=== PATIENT | male | born 1975 | race Caucasian/White ===

== ENCOUNTER 2021-11-28 12:15 | Inpatient (IN) | payer MEDICARE, MEDICAID ==
[~2021-11-28] VITALS: Ht 177.8 cm; Wt 123.1 kg
[2021-11-28 17:57] VITALS: BP 153/88
[2021-11-28] MEDS ORDERED: INFLUENZA VIRUS VACCINE QVS 2021-22 (6MO+)/PF 60 MCG/0.5 ML SYRINGE IM. ONE (20:15)
[2021-11-28] MEDS ORDERED: PNEUMOCOCCAL VACCINE POLYVALENT 0.5 ML VIAL [PPSV23] IM. ONE (20:15)
[2021-11-28] MEDS: HALOPERIDOL 5 MG TABLET PO PRN (20:16)
[2021-11-28] MEDS: ZOLPIDEM TARTRATE 10 MG TABLET PO PRN (20:16)
[2021-11-28] MEDS: LORazepam 2 MG TABLET PO PRN (20:16)
[2021-11-29 04:50] VITALS: BP 151/95
[2021-11-29 08:09] VITALS: BP 150/74
[2021-11-29] MEDS: LORazepam 2 MG TABLET PO PRN ×2 (08:47→16:17)
[2021-11-29 14:58] LABS: APPEARANCE,URINE CLEAR (CLEAR); BILIRUBIN,URINE NEGATIVE (NEGATIVE); GLUCOSE, URINE (UA) NEGATIVE (NEGATIVE); KETONES,URINE NEGATIVE (NEGATIVE); LEUKOCYTE ESTERASE ,URINE NEGATIVE (NEGATIVE); NITRATE,URINE NEGATIVE (NEGATIVE); OCCULT BLOOD,URINE NEGATIVE (NEGATIVE); PROTEIN,URINE NEGATIVE (NEGATIVE)
[2021-11-29 15:02] LABS: AMPHET/METH SCREEN,URINE NEGATIVE (NEGATIVE); BARBITURATE SCREEN, URINE NEGATIVE (NEGATIVE); BENZODIAZEPINES SCREEN,URINE NEGATIVE (NEGATIVE); CANNABINOID SCREEN,URINE NEGATIVE (NEGATIVE); COCAINE SCREEN,URINE NEGATIVE (NEGATIVE); METHADONE SCREEN, URINE NEGATIVE (NEGATIVE); OPIATE SCREEN,URINE NEGATIVE (NEGATIVE)
[2021-11-29 15:06] LABS: PHENCYCLIDINE SCREEN,URINE NEGATIVE (NEGATIVE)
[2021-11-29 16:00] VITALS: BP 140/88
[2021-11-29] MEDS ORDERED: IBUPROFEN 400 MG TABLET PO PRN (16:30)
[2021-11-29] MEDS ORDERED: ONDANSETRON HCL 4 MG TABLET PO PRN (16:30)
[2021-11-29] MEDS ORDERED: MAGNESIUM HYDROXIDE SUSPENSION 30 ML UDCUP PO PRN (16:30)
[2021-11-29] MEDS ORDERED: DOCUSATE SODIUM 100 MG CAPSULE PO PRN (16:30)
[2021-11-29] MEDS ORDERED: PETROLATUM,WHITE 28 GM JELLY TP PRN (16:30)
[2021-11-29] MEDS ORDERED: ACETAMINOPHEN 325 MG TABLET PO PRN (16:30)
[2021-11-29] MEDS ORDERED: GuaiFENesin/D-METHORPHAN [SUGAR-FREE] 200-20MG/10 ML SYRUP UDCUP PO PRN (16:30)
[2021-11-29] MEDS ORDERED: LOPERAMIDE HCL 2 MG CAPSULE PO PRN (16:30)
[2021-11-29] MEDS ORDERED: ALBUTEROL SULFATE HFA 90 MCG/PUFF 8 GM INHALER IH PRN (16:30)
[2021-11-29] MEDS ORDERED: CloNIDine HCL 0.1 MG TABLET PO PRN (16:30)
[2021-11-29] MEDS ORDERED: NICOTINE 14 MG/24 HOUR PATCH TD PRN (16:30)
[2021-11-29] MEDS ORDERED: MAG HYDROX/AL HYDROX/SIMETH ES 30 ML SUSPENSION UDCUP PO PRN (16:30)
[2021-11-29] MEDS: QUEtiapine FUMARATE 200 MG TABLET PO SCH (20:02)
[2021-11-29] MEDS: ZOLPIDEM TARTRATE 10 MG TABLET PO PRN (20:02)
[2021-11-30 00:34] VITALS: BP 136/81
[2021-11-30] MEDS: LORazepam 2 MG TABLET PO PRN ×3 (08:19→20:09)
[2021-11-30 08:41] VITALS: BP 130/76
[2021-11-30 16:22] VITALS: BP 141/83
[2021-11-30] MEDS: QUEtiapine FUMARATE 200 MG TABLET PO SCH (20:09)
[2021-11-30] MEDS: ZOLPIDEM TARTRATE 10 MG TABLET PO PRN (20:09)
[2021-12-01 03:53] VITALS: BP 118/72
[2021-12-01 09:18] VITALS: BP 122/70
[2021-12-01] MEDS: HALOPERIDOL 5 MG TABLET PO PRN (10:21)
[2021-12-01] MEDS: LORazepam 2 MG TABLET PO PRN ×3 (10:21→20:09)
[2021-12-01 16:04] VITALS: BP 170/92
[2021-12-01] MEDS: QUEtiapine FUMARATE 200 MG TABLET PO SCH (20:09)
[2021-12-01] MEDS: ZOLPIDEM TARTRATE 10 MG TABLET PO PRN (20:09)
[2021-12-02 05:28] VITALS: BP 137/75
[2021-12-02] MEDS: LORazepam 2 MG TABLET PO PRN ×4 (08:08→20:39)
[2021-12-02] MEDS: HALOPERIDOL 5 MG TABLET PO PRN ×2 (08:08→12:12)
[2021-12-02 08:15] VITALS: BP 130/78
[2021-12-02 16:02] VITALS: BP 140/81
[2021-12-02] MEDS: QUEtiapine FUMARATE 200 MG TABLET PO SCH (20:39)
[2021-12-02] MEDS: ZOLPIDEM TARTRATE 10 MG TABLET PO PRN (20:39)
[2021-12-03 01:04] VITALS: BP 117/76
[2021-12-03] MEDS: LORazepam 2 MG TABLET PO PRN ×3 (08:00→16:06)
[2021-12-03 08:11] VITALS: BP 117/79
[2021-12-03 15:06] LABS: GLUCOMETER DEV NAME(LOC) POC.BV
[2021-12-03 16:05] VITALS: BP 133/81
[2021-12-03] MEDS: QUEtiapine FUMARATE 200 MG TABLET PO SCH (20:16)
[2021-12-03] MEDS: ZOLPIDEM TARTRATE 10 MG TABLET PO PRN (20:16)
[2021-12-04 00:11] VITALS: BP 124/68
[2021-12-04 01:34] VITALS: BP 120/70
[2021-12-04] MEDS: LORazepam 2 MG TABLET PO PRN ×4 (07:52→20:49)
[2021-12-04 08:15] VITALS: BP 150/96
[2021-12-04 16:02] VITALS: BP 140/83
[2021-12-04] MEDS: HALOPERIDOL 5 MG TABLET PO PRN (16:31)
[2021-12-04] MEDS: QUEtiapine FUMARATE 200 MG TABLET PO SCH (20:49)
[2021-12-04] MEDS: ZOLPIDEM TARTRATE 10 MG TABLET PO PRN (20:50)
[2021-12-05 06:20] VITALS: BP 122/80
[2021-12-05 08:06] LABS: COVID AG,FIA SOURCE NASOPHARYNGEAL
[2021-12-05 08:13] VITALS: BP 117/64
[2021-12-05] MEDS: LORazepam 2 MG TABLET PO PRN ×3 (08:38→20:37)
[2021-12-05 16:04] VITALS: BP 133/83
[2021-12-05] MEDS: QUEtiapine FUMARATE 200 MG TABLET PO SCH (20:37)
[2021-12-05] MEDS: ZOLPIDEM TARTRATE 10 MG TABLET PO PRN (20:37)
[2021-12-05] MEDS: HALOPERIDOL 5 MG TABLET PO PRN (23:15)
[2021-12-06 01:39] VITALS: BP 138/83
[2021-12-06 08:10] VITALS: BP 112/60
[2021-12-06] MEDS: ESCITALOPRAM OXALATE 10 MG TABLET PO SCH (09:11)
[2021-12-06 12:01] LABS: GLUCOMETER DEV NAME(LOC) POC.BV
[2021-12-06] MEDS: LORazepam 2 MG TABLET PO PRN ×3 (13:41→19:03)
[2021-12-06 16:04] VITALS: BP 139/45
[2021-12-06] MEDS: HALOPERIDOL 5 MG TABLET PO PRN (17:20)
[2021-12-06] MEDS: QUEtiapine FUMARATE 300 MG TABLET PO SCH (20:09)
[2021-12-06] MEDS: ZOLPIDEM TARTRATE 10 MG TABLET PO PRN (21:18)
[2021-12-07 04:48] VITALS: BP 123/65
[2021-12-07 08:00] VITALS: BP 117/71
[2021-12-07] MEDS: ESCITALOPRAM OXALATE 10 MG TABLET PO SCH (08:26)
[2021-12-07] MEDS: LORazepam 2 MG TABLET PO PRN ×3 (08:26→21:17)
[2021-12-07 16:04] VITALS: BP 133/84
[2021-12-07] MEDS: QUEtiapine FUMARATE 300 MG TABLET PO SCH (20:03)
[2021-12-08 00:18] VITALS: BP 122/73
[2021-12-08 08:00] VITALS: BP 104/60
[2021-12-08] MEDS: LORazepam 2 MG TABLET PO PRN ×4 (08:29→22:58)
[2021-12-08] MEDS: ESCITALOPRAM OXALATE 10 MG TABLET PO SCH (08:29)
[2021-12-08 08:30] VITALS: BP 110/72
[2021-12-08 16:04] VITALS: BP 125/89
[2021-12-08] MEDS: QUEtiapine FUMARATE 300 MG TABLET PO SCH (20:01)
[2021-12-08] MEDS: ZOLPIDEM TARTRATE 10 MG TABLET PO PRN (21:31)
[2021-12-09 00:06] VITALS: BP 114/75
[2021-12-09] MEDS: ESCITALOPRAM OXALATE 10 MG TABLET PO SCH (08:03)
[2021-12-09] MEDS: LORazepam 2 MG TABLET PO PRN ×3 (08:03→19:59)
[2021-12-09 08:21] VITALS: BP 120/60
[2021-12-09 11:01] LABS: GLUCOMETER DEV NAME(LOC) POC.BV
[2021-12-09 17:50] VITALS: BP 125/72
[2021-12-09] MEDS: ZOLPIDEM TARTRATE 10 MG TABLET PO PRN (19:59)
[2021-12-09] MEDS: QUEtiapine FUMARATE 300 MG TABLET PO SCH (19:59)
[2021-12-10 00:09] VITALS: BP 118/66
[2021-12-10] MEDS: ESCITALOPRAM OXALATE 10 MG TABLET PO SCH (08:01)
[2021-12-10 08:04] VITALS: BP 110/62
[2021-12-10] MEDS: LORazepam 2 MG TABLET PO PRN ×2 (12:08→17:02)
[2021-12-10 16:09] VITALS: BP 131/71
[2021-12-10] MEDS: QUEtiapine FUMARATE 300 MG TABLET PO SCH (20:05)
[2021-12-10] MEDS: ZOLPIDEM TARTRATE 10 MG TABLET PO PRN (20:05)
[2021-12-11 04:48] VITALS: BP 128/73
[2021-12-11 08:04] VITALS: BP 114/69
[2021-12-11] MEDS: LORazepam 2 MG TABLET PO PRN ×3 (08:46→17:31)
[2021-12-11] MEDS: ESCITALOPRAM OXALATE 10 MG TABLET PO SCH (08:46)
[2021-12-11 17:14] VITALS: BP 126/78
[2021-12-11] MEDS: QUEtiapine FUMARATE 300 MG TABLET PO SCH (20:20)
[2021-12-11] MEDS: ZOLPIDEM TARTRATE 10 MG TABLET PO PRN (20:20)
[2021-12-12] MEDS: LORazepam 2 MG TABLET PO PRN ×4 (00:37→17:12)
[2021-12-12 00:43] VITALS: BP 143/69
[2021-12-12 08:08] VITALS: BP 101/48
[2021-12-12 08:15] VITALS: BP 132/68
[2021-12-12] MEDS: ESCITALOPRAM OXALATE 10 MG TABLET PO SCH (08:17)
[2021-12-12] MEDS ORDERED: ESCITALOPRAM OXALATE 10 MG TABLET PO SCH (09:00)
[2021-12-12] MEDS ORDERED: ESCITALOPRAM OXALATE 10 MG TABLET PO ONE (09:15)
[2021-12-12 16:33] VITALS: BP 144/77
[2021-12-12] MEDS: ZOLPIDEM TARTRATE 10 MG TABLET PO PRN (20:02)
[2021-12-12] MEDS: QUEtiapine FUMARATE 300 MG TABLET PO SCH (20:02)
[2021-12-13 00:41] VITALS: BP 131/71
[2021-12-13 08:10] VITALS: BP 128/73
[2021-12-13] MEDS: ESCITALOPRAM OXALATE 10 MG TABLET PO SCH (08:25)
[2021-12-13] MEDS: LORazepam 2 MG TABLET PO PRN ×3 (08:25→17:08)
[2021-12-13 14:11] LABS: GLUCOMETER DEV NAME(LOC) POC.BV
[2021-12-13 16:03] VITALS: BP 124/68
[2021-12-13] MEDS: QUEtiapine FUMARATE 300 MG TABLET PO SCH (20:17)
[2021-12-13] MEDS: ZOLPIDEM TARTRATE 10 MG TABLET PO PRN (20:17)
[2021-12-14 02:17] VITALS: BP 126/78
[2021-12-14] MEDS: LORazepam 2 MG TABLET PO PRN ×3 (08:05→17:03)
[2021-12-14] MEDS: ESCITALOPRAM OXALATE 10 MG TABLET PO SCH (08:05)
[2021-12-14] MEDS: HALOPERIDOL 5 MG TABLET PO PRN (08:05)
[2021-12-14 10:27] VITALS: BP 148/89
[2021-12-14 16:29] VITALS: BP 115/66
[2021-12-14] MEDS: ZOLPIDEM TARTRATE 10 MG TABLET PO PRN (20:07)
[2021-12-14] MEDS: QUEtiapine FUMARATE 300 MG TABLET PO SCH (20:07)
[2021-12-15 00:45] VITALS: BP 123/68
[2021-12-15] MEDS: ESCITALOPRAM OXALATE 10 MG TABLET PO SCH (08:24)
[2021-12-15] MEDS: LORazepam 2 MG TABLET PO PRN ×2 (08:24→17:17)
[2021-12-15 08:28] VITALS: BP 120/70
[2021-12-15 16:04] VITALS: BP 102/63
[2021-12-15] MEDS: ZOLPIDEM TARTRATE 10 MG TABLET PO PRN (20:13)
[2021-12-15] MEDS: QUEtiapine FUMARATE 300 MG TABLET PO SCH (20:13)
[2021-12-16] VITALS: BP 140/62
[2021-12-16] MEDS: HALOPERIDOL 5 MG TABLET PO PRN ×2 (00:20→21:21)
[2021-12-16] MEDS: LORazepam 2 MG TABLET PO PRN ×2 (07:59→16:07)
[2021-12-16] MEDS: ESCITALOPRAM OXALATE 10 MG TABLET PO SCH (08:01)
[2021-12-16 08:20] VITALS: BP 131/86
[2021-12-16] MEDS ORDERED: QUET300T2 PO (14:32)
[2021-12-16] MEDS ORDERED: ESCI-8 PO (14:32)
[2021-12-16 16:59] VITALS: BP 123/74
[2021-12-16] MEDS: QUEtiapine FUMARATE 300 MG TABLET PO SCH (20:13)
[2021-12-16] MEDS: ZOLPIDEM TARTRATE 10 MG TABLET PO PRN (20:41)
[2021-12-17 00:06] VITALS: BP 117/70
[2021-12-17] MEDS: ESCITALOPRAM OXALATE 10 MG TABLET PO SCH (08:04)
[2021-12-17] MEDS: LORazepam 2 MG TABLET PO PRN ×2 (08:04→16:08)
[2021-12-17 08:16] VITALS: BP 145/92
[2021-12-17 10:16] LABS: GLUCOMETER DEV NAME(LOC) POC.BV
[2021-12-17] MEDS: HALOPERIDOL 5 MG TABLET PO PRN (14:51)
[2021-12-17 16:04] VITALS: BP 124/76
[2021-12-17] MEDS: QUEtiapine FUMARATE 300 MG TABLET PO SCH (20:03)
[2021-12-17] MEDS: ZOLPIDEM TARTRATE 10 MG TABLET PO PRN (20:03)
[2021-12-18 03:22] VITALS: BP 126/83
[2021-12-18] MEDS: LORazepam 2 MG TABLET PO PRN (08:04)
[2021-12-18] MEDS: ESCITALOPRAM OXALATE 10 MG TABLET PO SCH (08:04)
[2021-12-18 08:05] VITALS: BP 120/78
[2021-12-18 16:07] VITALS: BP 121/67
[2021-12-18] MEDS: LORazepam 1 MG TABLET PO PRN (16:08)
[2021-12-18] MEDS: QUEtiapine FUMARATE 300 MG TABLET PO SCH (20:29)
[2021-12-18] MEDS: ZOLPIDEM TARTRATE 10 MG TABLET PO PRN (20:30)
[2021-12-19 00:14] VITALS: BP 127/68
[2021-12-19] MEDS: HALOPERIDOL 5 MG TABLET PO PRN ×2 (00:37→16:13)
[2021-12-19 08:01] VITALS: BP 110/68
[2021-12-19] MEDS: ESCITALOPRAM OXALATE 10 MG TABLET PO SCH (08:01)
[2021-12-19] MEDS: LORazepam 1 MG TABLET PO PRN ×2 (08:01→20:17)
[2021-12-19 09:04] VITALS: BP 100/64
[2021-12-19 16:26] VITALS: BP 128/80
[2021-12-19] MEDS: QUEtiapine FUMARATE 300 MG TABLET PO SCH (20:17)
[2021-12-19] MEDS: ZOLPIDEM TARTRATE 10 MG TABLET PO PRN (20:18)
[2021-12-20 00:20] VITALS: BP 125/76
[2021-12-20] MEDS: ESCITALOPRAM OXALATE 10 MG TABLET PO SCH (08:51)
[2021-12-20] MEDS: LORazepam 1 MG TABLET PO PRN ×2 (10:10→23:28)
[2021-12-20 10:32] VITALS: BP 108/50
[2021-12-20 16:13] VITALS: BP 117/67
[2021-12-20] MEDS: HALOPERIDOL 5 MG TABLET PO PRN (17:17)
[2021-12-20] MEDS: QUEtiapine FUMARATE 300 MG TABLET PO SCH (20:37)
[2021-12-20] MEDS: ZOLPIDEM TARTRATE 10 MG TABLET PO PRN (20:46)
[2021-12-21 06:13] VITALS: BP 115/69
[2021-12-21] MEDS: ESCITALOPRAM OXALATE 10 MG TABLET PO SCH (08:54)
[2021-12-21 10:07] VITALS: BP 118/72
[2021-12-21] MEDS: LORazepam 1 MG TABLET PO PRN (12:36)
[2021-12-21] MEDS: HALOPERIDOL 5 MG TABLET PO PRN (15:19)
[2021-12-21 16:12] VITALS: BP 122/77
[2021-12-21] MEDS: QUEtiapine FUMARATE 300 MG TABLET PO SCH (20:03)
[2021-12-21] MEDS: ZOLPIDEM TARTRATE 10 MG TABLET PO PRN (21:27)
[2021-12-22 02:05] VITALS: BP 118/69
[2021-12-22] MEDS: ESCITALOPRAM OXALATE 10 MG TABLET PO SCH (08:01)
[2021-12-22] MEDS: LORazepam 1 MG TABLET PO PRN ×2 (08:01→20:35)
[2021-12-22 08:32] VITALS: BP 118/79
[2021-12-22 17:00] VITALS: BP 130/78
[2021-12-22] MEDS: QUEtiapine FUMARATE 300 MG TABLET PO SCH (20:34)
[2021-12-22] MEDS: ZOLPIDEM TARTRATE 10 MG TABLET PO PRN (20:34)
[2021-12-23 06:20] VITALS: BP 117/77
[2021-12-23 08:16] VITALS: BP 103/56
[2021-12-23 09:45] VITALS: BP 110/74
[2021-12-23] MEDS: LORazepam 1 MG TABLET PO PRN ×2 (09:46→22:48)
[2021-12-23] MEDS: ESCITALOPRAM OXALATE 10 MG TABLET PO SCH (09:46)
[2021-12-23 16:08] VITALS: BP 113/60
[2021-12-23] MEDS: ZOLPIDEM TARTRATE 10 MG TABLET PO PRN (20:32)
[2021-12-23] MEDS: QUEtiapine FUMARATE 300 MG TABLET PO SCH (20:32)
[2021-12-24 05:18] VITALS: BP 108/62
[2021-12-24 08:24] VITALS: BP 126/72
[2021-12-24] MEDS: ESCITALOPRAM OXALATE 10 MG TABLET PO SCH (08:59)
[2021-12-24 16:25] VITALS: BP 129/79
[2021-12-24] MEDS: LORazepam 1 MG TABLET PO PRN (17:26)
[2021-12-24] MEDS: ZOLPIDEM TARTRATE 10 MG TABLET PO PRN (20:32)
[2021-12-24] MEDS: QUEtiapine FUMARATE 300 MG TABLET PO SCH (20:32)
[2021-12-25 05:22] VITALS: BP 122/81
[2021-12-25] MEDS: ESCITALOPRAM OXALATE 10 MG TABLET PO SCH (08:15)
[2021-12-25] MEDS: LORazepam 1 MG TABLET PO PRN (08:15)
[2021-12-25 08:29] VITALS: BP 131/65
[2021-12-25] MEDS ORDERED: QUET300T2 PO (12:45)
[2021-12-25] MEDS ORDERED: ESCI-8 PO (12:45)
== END 2021-12-25 13:40 | disposition home or self-care (01) | DRG 885 ==
LOC: B3A 17:00
PROVIDERS: ADMIT Psychiatry & Neurology Psychiatry; ATTEND Psychiatry & Neurology Psychiatry
DX: F31.4 Bipolar disorder, current episode depressed, severe, without psychotic features (principal); R45.851 Suicidal ideations; F10.10 Alcohol abuse, uncomplicated; F15.10 Other stimulant abuse, uncomplicated; Z20.822 Contact with and (suspected) exposure to COVID-19; K21.9 Gastro-esophageal reflux disease without esophagitis; K59.00 Constipation, unspecified; Z59.00 Homelessness unspecified; Z79.899 Other long term (current) drug therapy; Z91.51 Personal history of suicidal behavior
CPT/HCPCS: 80307; 81003; 84439